=== PATIENT | female | born 1990 | race Caucasian/White ===

== ENCOUNTER → 2019-09-08 09:15 | Outpatient (CLI) | payer OTHER, SELFPAY ==
--- NOTE | ~2019-09-08 | US_ITS ---
EXAMINATION: US OB >= 14 weeks Fetus DATE: 09/08/2019 10:14 INDICATION: survey TECHNIQUE: Multiple obstetric sonographic images performed. FINDINGS: No prior studies for comparison. There is a single living fetus in variable presentation. The placenta is posterior without placenta previa. Placental margin is 3.7 cm to the cervix. Amniotic fluid volume is normal. ROSE measures 11.5 cm. cardiac activity and movement is noted with a heart rate of beats per minute. The following anatomy was identified as normal: 4 chamber heart 3 vessel cord cord insertion kidneys urinary bladder stomach spine diaphragm ventricles cisterna magna cerebellum The following biometric data were obtained: BPD: 43mm corresponds to gestational age 18 weeks 6 days. Head circumference: 161 mm corresponds to gestational age 19 weeks 0 days. Abdominal circumference: 140 mm corresponds to gestational age 19 weeks 3 days. Femur length: 31 mm corresponds to gestational age 19 weeks 4 days. Head circumference to abdominal circumference ratio: 1.15 (normal range for expected gestational age is 1.09-1.26). Estimated weight: 289 grams +/- 43 grams using Hadlock method. IMPRESSION: 1: Single living intrauterine with an estimated gestational age of 19weeks 2days by current ultrasound measurements,] with an EDC of 01/31/2020 in vertex presentation.] 2. Normal survey. Reviewed, dictated and finalized at location A. [employer] IMPRESSION: 1: Single living intrauterine with an estimated gestational age of 19 weeks 2days by current ultrasound measurements,] with an EDC of 01/31/2020 in ve rtex presentation.] 2. Normal survey.
== END ==
PROVIDERS: PCP Internal Medicine; Visit Provider Obstetrics & Gynecology
DX: Z36.9 Encounter for antenatal screening, unspecified (principal); Z3A.19 19 weeks gestation of pregnancy
CPT/HCPCS: 76805

== ENCOUNTER 2024-06-22 08:08 | Emergency (ER) | payer OTHER, SELFPAY ==
--- NOTE | 2024-06-22 08:29 | ED.SKABFB ---
HPI - Skin/Abscess/Foreign Bdy General Chief complaint: Skin/Abscess/Foreign Body Stated complaint: Rash on RT Side upper arm and chest Time Seen by Provider: 06/22/24 08:47 Source: patient and RN notes reviewed Mode of arrival: ambulatory Limitations: no limitations History of Present Illness HPI narrative: 33-year-old female presents concern for itchy rash in her right axillary area. She reports she had a staph infection in both axilla and was taking doxycycline, this rash started just before she finished her doxycycline. She reports she has also been using mupirocin ointment in both of the areas. The rash is only in the right axillary area. She reports she started putting hydrocortisone cream on it without relief. She denies any swollen tongue, swollen lips, trouble breathing. She denies any other rash or itching. MD complaint: rash Related Data Home Medications Medication Instructions Recorded Confirmed levonorgestrel 21 mcg/24 hr (up to 1 device intrauterine ONCE 06/22/24 06/22/24 8 years) 52 mg intrauterine device (Mirena) Allergies Allergy/AdvReac Type Severity Reaction Status Date / Time sulfamethoxazole Allergy Mild Hives Verified 06/22/24 08:36 [From Bactrim] trimethoprim [From Bactrim] Allergy Mild Hives Verified 06/22/24 08:36 Review of Systems Review of Systems: CONSTITUTIONAL: Denies malaise, chills, sweats, or fever. EYES: Denies redness, or discharge. ENT: Denies rhinorrhea, congestion, swollen lips, swollen tongue CARDIOVASCULAR: Denies chest pain, palpitations, or edema. RESPIRATORY: Denies cough or dyspnea. GASTROINTESTINAL: Denies abdominal pain, nausea, vomiting SKIN: Reports itchy rash in the right axillary area MUSCULOSKELETAL: Denies joint pain or myalgia. NEUROLOGIC: Denies headache. All systems reviewed & are unremarkable except as noted in HPI and below PMFSH Comments At time of signature, agree with nursing past medical, surgical, social and family history. There is no relevant family history pertinent to the presenting complaint Exam Narrative: GENERAL: Well-appearing, well-nourished, and in no acute distress. HEAD: Normocephalic, atraumatic. EYES: PERRLA, conjunctivae clear, and EOMI. ENT: Mucous membranes moist. Oropharynx without edema, erythema or lesions. NECK: Supple. No lymphadenopathy CHEST: Clear to auscultation. No respiratory distress. HEART: Regular rate and rhythm. SKIN: Warm, dry. Localized fine erythematous papular rash noted in the right axillary area NEURO: Alert and oriented x3. PSYCH: Normal mood and affect Course Course Emergency Course: I told the patient to discuss this rash with her primary care provider who prescribed doxycycline to decide if they will add doxycycline to her allergy list Patient is aware of diagnosis, understands and agrees to treatment plan. Anticipatory guidance given. Patient agrees to follow-up as directed and is aware of reasons to seek care at the emergency department. Portions of this record may have been created with voice recognition software Level of Care: Express Care Visit Vital Signs Vital signs: Reviewed. MDM - Skin/Abscess/Foreign Bdy MDM Narrative Medical decision making narrative: Does not appear at this time to be erythema multiforme, bullous, SJS, TEN; no evidence at this time to suggest RMSF, endocarditis or Lyme disease; patient looks well, nontoxic and is tolerating oral intake; no neurologic signs or symptoms; no headache, photophobia or neck pain; afebrile; appropriate for initial outpatient treatment; discussed the importance of follow-up, patient agrees; question, viral exanthema, contact dermatitis, allergic dermatitis, eczema, urticaria, [ xx ]. No soft palate or uvula edema, no tongue, lip edema or other mucosal involvement, no respiratory compromise, no stridor, no wheezing, no wheezing, no history of syncope, no hypotension, no nausea, vomiting, or diarrhea. Instructed patient to go to nearest ER immediately for any worsening symptoms including but not limited to: fever, spreading rash, pain, sore throat, headache, dizziness, chest pain, trouble breathing, or any symptoms concerning to the patient. Critical Care Time Critical Care Time Critical Care Time: No Discharge Plan Discharge Clinical Impression: Acute eruption of skin Patient Disposition: Home, Self-Care Condition: Stable Instructions: Acute Rash (ED) Additional Instructions: Wash the area with gentle soap and water only. Continue using hydrocortisone skin cream as prescribed to reduce itchiness Take prednisone as directed Avoid scratching when possible to prevent worsening of the condition and disruption of the skin that could lead to bacterial infection To relieve itching, place a cool washcloth or some ice over the area that itches, rather than scratching Follow up with primary care provider or seek ER if you have trouble breathing, become hoarse, or start wheezing, develop belly cramps, vomiting or feel dizzy. Prescriptions: New prednisone 20 mg tablet 40 mg PO DAILY 5 Days Qty: 10 0RF No Action Mirena 21 mcg/24hr (up to 8 yrs) 52 mg Intrauterine Device 1 device INTRAUTERINE ONCE Rx Instructions: as a single dose Follow-up/Referrals: Yvonne Mendoza PA-C [Primary Care Provider] -
[2024-06-22 08:30] VITALS: BP 118/71; PULSE 72; RESP 19; TEMP 36.4; O2SAT 100
== END 2024-06-22 08:54 | disposition home or self-care (01) ==
PROVIDERS: Emergency Provider Nurse Practitioner; PCP Physician Assistant Medical
DX: R21 Rash and other nonspecific skin eruption (principal)
CPT/HCPCS: 99213; G0463